=== PATIENT | female | born 1945 | race Caucasian/White ===

== ENCOUNTER → 2018-01-03 12:21 | Outpatient (CLI) | payer MEDICARE, OTHER, SELFPAY ==
--- NOTE | 2018-01-03 | DI.US.S_ITS ---
LIMITED ULTRASOUND OF RIGHT BREAST: 01/03/2018 CLINICAL: Patient returns today to evaluate a density in the right breast. Comparison is made to exams dated: 01/03/2018 mammogram - [facility], 06/30/2017 stereotactic biopsy - [facility], 06/23/2017 ultrasound, 06/23/2017 mammogram, 06/12/2017 mammogram, and 05/06/2016 mammogram - [facility]. Color flow and real-time ultrasound of the right breast 11 o'clock region were performed on the areas of interest. There is 1.2 cm x 0.6 cm x 0.7 cm irregular complicated cyst with an irregular internal wall in the right breast at 11 o'clock anterior depth. This irregular complicated cyst is hypoechoic with internal echoes and appears contiguous with the skin biopsy site. This correlates with mammography findings and the previous biopsy. Color flow imaging demonstrates that there is an adjacent vascularity. Findings likely represent a post-biopsy seroma. IMPRESSION: PROBABLY BENIGN The 1.2 cm x 0.6 cm x 0.7 cm irregular complicated cyst in the right breast is probably benign. Follow-up mammogram and ultrasound in 6 months is recommended. A follow-up mammogram and an ultrasound in 6 months is recommended to demonstrate stability.(07/05/2018) This exam was interpreted at Station ID: [id number]. Electronically Signed By: Alvarez frye/:01/03/2018 14:18:37 letter sent: Followup Recommended Ultrasound BI-RADS: 3 Probably benign
--- NOTE | 2018-01-03 | DI.MG.S_ITS ---
UNILATERAL RIGHT DIGITAL DIAGNOSTIC MAMMOGRAM 3D/2D SHORT-TERM FOLLOW-UP: 01/03/2018 CLINICAL: Patient returns for a 6 month follow up of the right breast. Post biopsy. Comparison is made to exams dated: 06/30/2017 stereotactic biopsy - [facility], 06/23/2017 ultrasound, 06/23/2017 mammogram, and 06/12/2017 mammogram - [facility]. The tissue of right breast is heterogeneously dense. This may lower the sensitivity of mammography. There is an oval equal density asymmetry with an indistinct margin in the right breast at 11 o'clock anterior depth. This correlates with the biopsy site. There is skin retraction associated with the asymmetry in the region of the biopsy scar. No other significant masses or calcifications are seen in the breast. IMPRESSION: INCOMPLETE: NEEDS ADDITIONAL IMAGING EVALUATION The oval equal density asymmetry in the right breast is indeterminate. An ultrasound is recommended. This exam was interpreted at Station ID: [id number]. NOTE: For mammograms, a report in lay terms will be sent to the patient. Approximately 15% of breast malignancies will not be visualized mammographically. In the management of a palpable breast mass, a negative mammogram must not discourage biopsy of a clinically suspicious lesion. Electronically Signed By: Alvarez Enamorado M.D. ddradha/:01/03/2018 13:28:36 letter sent: Need Ultrasound ACR BI-RADS Category 0: Incomplete 3340F
== END ==
PROVIDERS: PCP Family Medicine; Visit Provider Family Medicine
DX: R92.8 Other abnormal and inconclusive findings on diagnostic imaging of breast (principal); N60.01 Solitary cyst of right breast
CPT/HCPCS: 76642; 77065; G0279

== ENCOUNTER → 2018-06-27 14:31 | Outpatient (CLI) | payer MEDICARE, OTHER, SELFPAY ==
--- NOTE | 2018-06-27 | DI.US.S_ITS ---
LIMITED ULTRASOUND OF RIGHT BREAST: 06/27/2018 CLINICAL: Patient returns for a 6 month follow up of the right breast. Comparison is made to exams dated: 06/27/2018 mammogram, 01/03/2018 ultrasound, 01/03/2018 mammogram - [facility], 06/30/2017 stereotactic biopsy - [facility], 06/23/2017 ultrasound, and 06/23/2017 mammogram - [facility]. Ultrasound of the right breast 11 o'clock region was performed. There is a 1.3 cm x 0.5 cm x 0.8 cm irregular mass in the right breast at 11 o'clock anterior depth immediately below the skin surface. This abnormality is associated with an overlying known biopsy site and has not significantly changed. Color flow imaging demonstrates that there is no increase in vascularity. IMPRESSION: BENIGN There is no sonographic evidence of malignancy. The 1.3 cm x 0.5 cm x 0.8 cm irregular mass in the right breast is consistent with biopsy changes and is stable. Return to annual mammogram screening schedule is recommended. Findings and recommendations were conveyed to the patient. This exam was interpreted at Station ID: [id number]. Electronically Signed By: Sharda mcnamara/:06/27/2018 16:37:12 copy to: Lisandro NOVAK letter sent: Normal Exam Ultrasound BI-RADS: 2 Benign
--- NOTE | 2018-06-27 | DI.MG.S_ITS ---
BILATERAL DIGITAL DIAGNOSTIC MAMMOGRAM 3D/2D SHORT-TERM FOLLOW-UP: 06/27/2018 CLINICAL: Short term follow up of the right breast, due for bilateral imaging. Comparison is made to exams dated: 01/03/2018 mammogram, 06/23/2017 mammogram, and 06/12/2017 mammogram - [facility]. There are scattered fibroglandular elements in both breasts. There is a stable irregular mass in the right breast at 11 o'clock anterior depth. There is a post-surgical scar associated with the mass. No other significant masses, calcifications, or other findings are seen in either breast. IMPRESSION: INCOMPLETE: NEEDS ADDITIONAL IMAGING EVALUATION The irregular mass in the right breast is stable and consistent with previous biopsy changes. An ultrasound for confirmation of stability is recommended and has been performed. No mammographic evidence of malignancy in the left breast. This exam was interpreted at Station ID: [id number]. NOTE: For mammograms, a report in lay terms will be sent to the patient. Approximately 15% of breast malignancies will not be visualized mammographically. In the management of a palpable breast mass, a negative mammogram must not discourage biopsy of a clinically suspicious lesion. Electronically Signed By: Sharda mcnamara/:06/27/2018 16:31:48 copy to: Lisandro MARADIAGA BI-RADS Category 0: Incomplete 3340F
== END ==
PROVIDERS: PCP Family Medicine; Visit Provider Family Medicine
DX: R92.8 Other abnormal and inconclusive findings on diagnostic imaging of breast (principal); N63.11 Unspecified lump in the right breast, upper outer quadrant
CPT/HCPCS: 76642; 77066; G0279

== ENCOUNTER → 2019-10-02 15:17 | Outpatient (CLI) | payer MEDICARE, OTHER, SELFPAY ==
--- NOTE | 2019-10-02 15:19 | DI.MG.S_ITS ---
BILATERAL DIGITAL SCREENING MAMMOGRAM 3D/2D WITH CAD: 10/02/2019 CLINICAL: Routine screening. Family history of breast cancer. Comparison is made to exams dated: 06/27/2018 mammogram, 01/03/2018 mammogram, 06/23/2017 mammogram, and 06/12/2017 mammogram - [facility]. There are scattered fibroglandular elements in both breasts. Current study was also evaluated with a Computer Aided Detection (CAD) system. There are benign post operative findings in the right breast. No significant masses, calcifications, or other findings are seen in either breast. There has been no significant interval change. IMPRESSION: There is no mammographic evidence of malignancy. A 1 year screening mammogram is recommended. This exam was interpreted at Station ID: [id number]. NOTE: For mammograms, a report in lay terms will be sent to the patient. Approximately 15% of breast malignancies will not be visualized mammographically. In the management of a palpable breast mass, a negative mammogram must not discourage biopsy of a clinically suspicious lesion. Electronically Signed By: Tatiana palmer/rajesh:10/02/2019 15:52:51 copy to: Daisy Polo letter sent: Normal Exam ACR BI-RADS Category 2: Benign Finding(s) 3342F
== END ==
PROVIDERS: PCP Family Medicine; Referring Provider Family Medicine; Visit Provider Family Medicine
DX: Z12.31 Encounter for screening mammogram for malignant neoplasm of breast (principal); Z80.3 Family history of malignant neoplasm of breast
CPT/HCPCS: 77063; 77067

== ENCOUNTER 2019-12-13 02:52 | Emergency (ER) | payer MEDICARE, OTHER, SELFPAY ==
[2019-12-13 03:00] VITALS: BP 174/81; PULSE 95; RESP 18; TEMP 37.5; O2SAT 98
--- NOTE | 2019-12-13 03:13 | ED.GENADULT ---
HPI - General Adult General Chief complaint: Fever Stated complaint: fever/fatigue Time Seen by Provider: 12/13/19 02:57 Source: patient Mode of arrival: Ambulatory Limitations: no limitations History of Present Illness HPI narrative: Patient is an otherwise healthy 74-year-old female who went to sleep last night and her normal state health. States she woke up just prior to arrival here to the emergency department stating that she did not feel very well. She stated that it was more of just a fatigue without any specific symptoms. She woke her up. They took her temperature at home and the patient reported that it was 103. She denies chest pain or shortness of breath or sore throat or nasal congestion abdominal pain or nausea or vomiting or urinary symptoms or constipation or diarrhea. No skin rashes. She did not take anything for her symptoms prior to arrival. Related Data Home Medications Medication Instructions Recorded Confirmed EPINEPHRINE (#EPI-PEN) 1 mg MR PRN #0 10/03/11 MULTIVITAMIN (One Daily 1 tab PO QDAY #0 10/03/11 Multivitamin) [ACIDOPHILUS] QDAY #0 10/03/11 [Alleclear] QDAY #0 10/03/11 [CALCIUM] QDAY #0 10/03/11 [LUTEIN/ZEAXANTHIN] 5 - 25 mg #0 10/03/11 [VITAMIN D] #0 10/03/11 albuterol sulfate [Proventil HFA] 2 puff INH PRN #8.5 gm 10/03/11 conj estrog-medroxyprogest miguel 1 tab PO QDAY #0 10/03/11 [Prempro] escitalopram oxalate [Lexapro] 10 mg PO QDAY #0 10/03/11 estradiol [Vagifem] 10 mcg VG #0 10/03/11 levothyroxine 88 mcg PO QDAY@0600 #0 10/03/11 mometasone [Nasonex] 2 spray INTRANASAL #17 gm 10/03/11 olopatadine [Pataday] 1 drp OPHTH PRN #2.5 ml 10/03/11 Allergies Allergy/AdvReac Type Severity Reaction Status Date / Time CAT DANDER Allergy Unknown Uncoded 07/05/17 12:21 DOG DANDER Allergy Unknown Uncoded 07/05/17 12:21 From NEOSPORIN TP OIN Allergy Unknown Uncoded 07/05/17 12:21 From POLYSPORIN Allergy Unknown Uncoded 07/05/17 12:21 LATEX Allergy Unknown Uncoded 07/05/17 12:21 NUTS Allergy Unknown Uncoded 07/05/17 12:21 SHELLFISH Allergy Unknown Uncoded 07/05/17 12:21 Review of Systems Constitutional Constitutional: Reports fever(s), Denies headache(s) and Reports malaise ENT Ears, Nose, Mouth, and Throat: Denies headache(s) and Denies sore throat Cardiovascular Cardiovascular: Denies chest pain and Denies dyspnea Respiratory Respiratory: Denies cough and Denies dyspnea Gastrointestinal Gastrointestinal: Denies abdominal pain, Denies nausea and Denies vomiting Genitourinary Genitourinary: Denies dysuria Genitourinary: Denies dysuria Musculoskeletal Musculoskeletal: Denies arthralgias and Denies myalgias Integumentary/Breasts Skin/Breast: Denies rash Neurologic Neurologic: Denies behavioral changes and Denies headache(s) Psychiatric Psychiatric: Denies behavioral changes Hematologic/Lymphatic Hematologic/Lymphatic: Denies easy bleeding and Denies easy bruising Allergic/Immunologic Allergic/Immunologic: Denies urticaria Patient History Medical History (Updated 12/13/19 @ 05:34 by Marco Antonio Torrez DO) Esophageal foreign body (Inactive) Hypothyroid (Acute) Social History Smoking Status: Never smoker Smoking Status: Never smoker alcohol intake frequency: a few times a month Substance Use Type: does not use Exam Initial Vital Signs Initial Vital Signs: Vital Signs Temperature 99.5 F 12/13/19 03:00 Pulse Rate 95 H 12/13/19 03:00 Respiratory Rate 18 12/13/19 03:00 Blood Pressure 174/81 H 12/13/19 03:00 Pulse Oximetry 98 12/13/19 03:00 Const General: cooperative and comfortable Limitations: mental status not altered HENMT Head: normal to inspection and normocephalic Resp Effort & Inspection: normal respiratory effort Auscultation: clear to auscultation bilaterally Cardio Rate: regular rate Rhythm: regular rhythm GI Inspection: non-distended Palpation: soft Skin Lesions: no lesions Rashes: no rashes Neuro General: patient alert and patient awake Cognition: normal cognition Speech: speech normal Extrem General: normal to inspection and capillary refill normal Psych Appearance: grossly normal and well kempt Course Orders Ordered: ED Orders 12/13/19 03:05 COVID19 -ED/INPAT/OR/L&D Stat Vital Signs Vital signs: Vital Signs - 8 hr 12/13/19 03:00 12/13/19 03:30 Temperature 99.5 F Pulse Rate 95 H 85 Respiratory Rate 18 14 Blood Pressure 174/81 H 131/71 Pulse Oximetry 98 98 Medical Decision Making Lab Data Lab results reviewed: Yes I reviewed the patient's lab results. Labs: Lab Results 12/13/19 Range/Units 03:05 COVID-19 PCR Negative (Negative) MDM Narrative Medical decision making narrative: Patient arrived with fairly vague symptoms. Her history and physical is not consistent with pneumonia, intra-abdominal pathology, skin rashes, meningitis, urinary tract infection, her COVID-19 testing is negative. She states that she feels better upon arrival to the emergency department that she did when she initially woke up. Unsure the exact etiology of her symptoms however right now there is no indication for antibiotics. No indication for admission the hospital. I feel that radiologic studies would not change clinical course. I feel that labs other than the coronavirus test would not change clinical course as well. Patient was given return precautions and follow-up instructions. She expressed understanding and agreement. Discharge Plan Departure Patient Disposition: Home Clinical Impression: Fever Qualifiers: Fever type: unspecified Qualified Code(s): R50.9 - Fever, unspecified Discharge Date/Time: 12/13/19 03:55 Instructions: DI for Fever (Symptom) -- Adult Activity Restrictions/Additional Instructions: Continue all of your medications as directed. You can take Tylenol and/or ibuprofen for any fevers. Be sure to increase your fluid intake. Return to the emergency department for any new or worsening symptoms Prescriptions: No Action conj estrog-medroxyprogest miguel [Prempro] 0.3 MG/1.5 MG tablet 1 tab PO QDAY Qty: 0 RF: 0 estradiol [Vagifem] 10 MCG tablet 10 mcg VG Qty: 0 RF: 0 levothyroxine 88 MCG tablet 88 mcg PO QDAY@0600 Qty: 0 RF: 0 EPINEPHRINE (#EPI-PEN) 1 mg MR PRN Qty: 0 RF: 0 [Alleclear] QDAY Qty: 0 RF: 0 mometasone [Nasonex] 50 MCG/PUFF spray,non-aerosol 2 spray Intranasal Qty: 17 RF: 0 albuterol sulfate [Proventil HFA] 90 MCG/PUFF HFA aerosol inhaler 2 puff INH PRN Qty: 8.5 RF: 0 escitalopram oxalate [Lexapro] 10 MG tablet 10 mg PO QDAY Qty: 0 RF: 0 olopatadine [Pataday] 2.5 ML drops 1 drp OPHTH PRN Qty: 2.5 RF: 0 MULTIVITAMIN (One Daily Multivitamin) 1 tab PO QDAY Qty: 0 RF: 0 [CALCIUM] QDAY Qty: 0 RF: 0 [VITAMIN D] Qty: 0 RF: 0 [ACIDOPHILUS] QDAY Qty: 0 RF: 0 [LUTEIN/ZEAXANTHIN] 5 - 25 mg Qty: 0 RF: 0 celecoxib 200 MG capsule Qty: 12 RF: 0 Referrals: Lisandro Khan MD [Primary Care Provider] -
[2019-12-13 03:30] VITALS: BP 131/71; PULSE 85; RESP 14; O2SAT 98
[2019-12-13 03:33] LABS: COVID19 -Nasal RAPID Negative (Negative)
== END 2019-12-13 03:55 | disposition home or self-care (01) ==
PROVIDERS: Emergency Provider Emergency Medicine; PCP Family Medicine
DX: R50.9 Fever, unspecified (principal)
CPT/HCPCS: 87635; 99282

== ENCOUNTER → 2020-09-11 08:58 | Outpatient (CLI) | payer MEDICARE, OTHER, SELFPAY ==
--- NOTE | 2020-09-11 | DI.MRI.S_ITS ---
PROCEDURE: MR HIP LT WO CON INDICATIONS: LEFT HIP PAIN TECHNIQUE: Noncontrast coronal T1 spin echo and STIR through the bony pelvis. Coronal and axial T2 fast spin echo with fat saturation, sagittal T1 spin echo, and oblique axial T2 fast spin echo with fat saturation through the hip. COMPARISON: [facility] [place], CR, XR PELVIS WITH LATERAL HIP LEFT, 06/30/2020, 11:22. FINDINGS: Image quality: Excellent. Bones and joints: Bone marrow of the pelvic ring and proximal femurs demonstrate normal overall signal. No intraosseous mass lesions or fractures. There is bilateral osteophytosis in the hips. No avascular necrosis of the femoral heads. The visualized lower lumbar spine appears normally aligned. Tendons and ligaments: There is tendinopathy of the gluteus minimus with mild partial tearing along the mild tendinous junction. The gluteus medius also demonstrates mild partial tearing along the myotendinous junction. There is minimal partial tearing at the insertions of the gluteal tendons on the greater trochanter. There is mild fatty atrophy within the gluteus medius and minimus muscles. There is a small amount of fluid superficial to the greater trochanter suggestive of mild bursitis. The proximal iliotibial band appears intact. The iliopsoas tendon appears intact, without adjacent bursal fluid collections or evidence for impingement syndrome. There is a multi lobulated collection adjacent to its insertion along the medial aspect of the proximal femur compatible with a ganglion cyst. The origin of the hamstring tendon demonstrates mild partial tearing at its origin with mild tendinopathy. The sacrotuberous ligament appears intact. The straight and reflected heads of the rectus femoris muscle origin appear intact, as well as the conjoint tendon. The ligamentum teres appears intact where visualized. Labrum and cartilage: There is mild degenerative tearing within the anterosuperior labrum. There is moderate cartilage thinning superiorly along the femoral head. The alpha angle of the femur is within normal limits at less than 55 degrees. Soft tissues: As noted above, there is mild fatty atrophy within the gluteus medius and minimus muscles associated with the partial tearing. Remaining visualized muscles demonstrate normal bulk and internal signal. Quadratus femoris muscle demonstrates no internal edema to suggest ischiofemoral impingement. The proximal sciatic neurovascular bundle appears normal adjacent to the hamstring tendons. No free pelvic fluid. Bladder wall thickness is normal. Genitourinary structures and bowel loops appear normal where visualized. IMPRESSION: 1. Mild partial tearing along the myotendinous junctions of the gluteus medius and minimus muscles with minimal partial tearing at their insertions on the greater trochanter. There is associated fatty muscle atrophy. 2. Small amount of fluid adjacent to the greater trochanter is suggestive of mild bursitis. 3. Mild partial tearing at the origin of the hamstring tendons. 4. Multiloculated cyst adjacent to the insertion of the ileus psoas tendon likely represents a ganglion cyst. 5. Mild degenerative tearing in the anterosuperior labrum. 6. Moderate osteoarthritic changes in the left hip. Dictated by: Alvarez Enamorado M.D. on 09/11/2020 at 13:05 Approved by: Alvarez Enamorado M.D. on 09/11/2020 at 13:16
== END ==
PROVIDERS: PCP Family Medicine; Referring Provider Family Medicine; Visit Provider Family Medicine
DX: M25.552 Pain in left hip (principal); S76.012A Strain of muscle, fascia and tendon of left hip, initial encounter; M16.12 Unilateral primary osteoarthritis, left hip; S73.192A Other sprain of left hip, initial encounter; M67.854 Other specified disorders of tendon, left hip
CPT/HCPCS: 73721

== ENCOUNTER → 2020-10-14 10:31 | Outpatient (CLI) | payer MEDICARE, OTHER, SELFPAY ==
--- NOTE | 2020-10-14 | DI.MG.S_ITS ---
BILATERAL DIGITAL SCREENING MAMMOGRAM 3D/2D WITH CAD: 10/14/2020 CLINICAL: Routine screening. Family history of breast cancer. Comparison is made to exams dated: 10/02/2019 mammogram, 06/27/2018 mammogram, 01/03/2018 mammogram, 06/23/2017 mammogram, and 06/12/2017 mammogram - [facility]. There are scattered fibroglandular elements in both breasts. Current study was also evaluated with a Computer Aided Detection (CAD) system. There is an irregular equal density asymmetry with an indistinct margin and grouped fine amorphous calcifications in the right breast at 11 o'clock anterior depth. No other significant masses, calcifications, or other findings are seen in either breast. IMPRESSION: INCOMPLETE: NEEDS ADDITIONAL IMAGING EVALUATION The irregular equal density asymmetry in the right breast is indeterminate. Mediolateral, spot magnification, and spot compression views as well as additional views with possible ultrasound are recommended. This exam was interpreted at Station ID: [id number]. NOTE: For mammograms, a report in lay terms will be sent to the patient. Approximately 15% of breast malignancies will not be visualized mammographically. In the management of a palpable breast mass, a negative mammogram must not discourage biopsy of a clinically suspicious lesion. Electronically Signed By: Alvarez frye/rajesh:10/14/2020 11:13:54 letter sent: Additional Imaging Needed ACR BI-RADS Category 0: Incomplete 3340F
== END ==
PROVIDERS: PCP Family Medicine; Referring Provider Family Medicine; Visit Provider Family Medicine
DX: Z12.31 Encounter for screening mammogram for malignant neoplasm of breast (principal); N64.89 Other specified disorders of breast; Z80.3 Family history of malignant neoplasm of breast
CPT/HCPCS: 77063; 77067

== ENCOUNTER → 2020-11-06 09:19 | Outpatient (CLI) | payer MEDICARE, OTHER, SELFPAY ==
--- NOTE | 2020-11-06 | DI.US.S_ITS ---
ULTRASOUND OF RIGHT BREAST AND AXILLA: 11/06/2020 CLINICAL: Patient returns today to evaluate a focal asymmetry in the right breast. Comparison is made to exams dated: 11/06/2020 mammogram, 10/14/2020 mammogram, 10/02/2019 mammogram, 06/27/2018 ultrasound, 06/27/2018 mammogram, and 01/03/2018 [facility]. Color flow and real-time ultrasound of the right breast axilla were performed. Lemus scale images of the real-time examination were reviewed. There is a 0.8 cm x 0.6 cm x 0.7 cm irregular mass with indistinct margins in the right breast at 10 o'clock anterior depth 4 cm from the nipple. This irregular mass is hypoechoic with posterior acoustic shadowing. This correlates with mammography findings. Color flow imaging demonstrates that there is vascularity present. No significant abnormalities were seen sonographically in the right axilla. IMPRESSION: SUSPICIOUS OF MALIGNANCY The 0.8 cm x 0.6 cm x 0.7 cm irregular mass in the right breast is suspicious of malignancy. An ultrasound guided biopsy is recommended. Findings and recommendations were discussed with the patient by Dr. Hopper during today's examination. This exam was interpreted at Station ID: [id number]. Electronically Signed By: Devonte Aguilera M.D. aty/:11/06/2020 10:25:14 letter sent: Biopsy Required Ultrasound BI-RADS: 4 Suspicious for malignancy
--- NOTE | 2020-11-06 | DI.MG.S_ITS ---
UNILATERAL RIGHT DIGITAL DIAGNOSTIC MAMMOGRAM 3D/2D WITH ADDITIONAL VIEWS: 11/06/2020 CLINICAL: Additional evaluation requested from prior study. Comparison is made to exams dated: 10/14/2020 mammogram, 10/02/2019 mammogram, and 06/27/2018 mammogram - [facility]. There are scattered fibroglandular elements in right breast. There is an irregular equal density focal asymmetry with an indistinct margin and grouped heterogeneous calcifications in the right breast at 11 o'clock anterior-middle depth. This is seen in additional views. No other significant masses or calcifications are seen in the breast. IMPRESSION: INCOMPLETE: NEEDS ADDITIONAL IMAGING EVALUATION The irregular equal density focal asymmetry in the right breast resembles fibroglandular tissue with possible associated microcalcifications and is indeterminate. An ultrasound is recommended for further evaluation and is scheduled to immediately follow this examination. This exam was interpreted at Station ID: [id number]. NOTE: For mammograms, a report in lay terms will be sent to the patient. Approximately 15% of breast malignancies will not be visualized mammographically. In the management of a palpable breast mass, a negative mammogram must not discourage biopsy of a clinically suspicious lesion. Electronically Signed By: Devonte Aguilera M.D. aty/:11/06/2020 09:53:03 ACR BI-RADS Category 0: Incomplete 3340F
== END ==
PROVIDERS: PCP Family Medicine; Referring Provider Family Medicine; Visit Provider Family Medicine
DX: R92.8 Other abnormal and inconclusive findings on diagnostic imaging of breast (principal); N63.11 Unspecified lump in the right breast, upper outer quadrant
CPT/HCPCS: 76642; 77065; G0279

== ENCOUNTER → 2020-11-27 12:25 | Outpatient (CLI) | payer MEDICARE, OTHER, SELFPAY ==
--- NOTE | 2020-11-27 | DI.US.S_ITS ---
ULTRASOUND GUIDED BIOPSY RIGHT BREAST USING VACUUM DEVICE WITH MARKING DEVICE INSERTED: 11/27/2020 CLINICAL: Patient returns today to evaluate an asymmetry in the right breast. PATIENT CONSENT: Risks (minor bleeding, infection, vasovagal reaction and repeat procedure), benefits and alternatives were explained to the patient and written informed consent was obtained. Correlation is made to exams dated: 11/27/2020 mammogram, 11/06/2020 ultrasound, 11/06/2020 mammogram, 10/14/2020 mammogram, 10/02/2019 mammogram, and 06/27/2018 [facility]. An ultrasound guided biopsy using real-time ultrasound was performed for the irregular shaped mass located in the right breast at 10 o'clock anterior depth. The skin was prepped in the usual manner. Local anesthetic was administered to the access site. A small incision was made in the breast. The abnormality was approached from the lateral aspect. A biopsy needle was placed adjacent to the abnormality under ultrasound guidance. Once the needle was documented to be in the correct location, a specimen was obtained using the Mammotome biopsy system. The patient received additional local anesthetic during the procedure. A clip was inserted into the biopsy cavity. The specimen was sent to the laboratory for pathological analysis. IMPRESSION: ULTRASOUND GUIDED BIOPSY BENIGN Ultrasound guided biopsy of the mass in the right breast at 10 o'clock anterior depth was successful. Pathology results indicates benign fibroadipose and fibroconnective tissue with hemosiderin-laden macrophages, patchy changes of foreign body giant cell reaction, and calcifications, suggestive of possible previous instrumentation or hematoma. Pathology results are concordant with imaging findings. However, recommend follow up right breast mammogram and right breast ultrasound to document stability. This exam was interpreted at Station ID: [id number]. Dino loomis,aty/:12/02/2020 10:08:24
--- NOTE | 2020-11-27 | DI.MG.S_ITS ---
UNILATERAL RIGHT DIGITAL DIAGNOSTIC MAMMOGRAM 3D/2D POST-PROCEDURE IMAGING FOR MARKER PLACEMENT: 11/27/2020 CLINICAL: Right post clip. Comparison is made to exams dated: 11/06/2020 ultrasound, 11/06/2020 mammogram, and 10/14/2020 mammogram - [facility]. There are scattered fibroglandular elements in right breast. There is a marker clip in the appropriate position in the right breast at 10 o'clock anterior depth. This marker clip placement is at the biopsy site. IMPRESSION: POST PROCEDURE MAMMOGRAM FOR MARKER PLACEMENT There was a successful marker clip placement in the right breast anterior depth. This exam was interpreted at Station ID: [id number]. NOTE: For mammograms, a report in lay terms will be sent to the patient. Approximately 15% of breast malignancies will not be visualized mammographically. In the management of a palpable breast mass, a negative mammogram must not discourage biopsy of a clinically suspicious lesion. Electronically Signed By: Dino loomis/:11/27/2020 15:23:58 ACR BI-RADS Category Post-procedure mammogram for marker placement
--- NOTE | 2020-11-27 | PATH_ITS ---
[facility] Accession Number: [id number] . 01 Material submitted: . breast - RIGHT BREAST MASS 10:00 4CMFN . 02 Diagnosis: Right Breast Mass at 10 o'clock, 4 cm from Nipple, Needle Core Biopsies: Fibroadipose and fibroconnective tissue with hemosiderin-laden macrophages, patchy changes of foreign body giant cell reaction, and calcifications, suggestive of possible previous instrumentation or hematoma. Negative for atypia or malignancy. . MRV 12/01/2020 1533 Local . 02 Comment: As part of routine lead quality technician, this case was also reviewed by Dr. Isaac, who agrees with the interpretation. . 02 Electronically signed: . Ana Boothe MD, Pathologist NPI- [id number] . 01 Gross description: . Received in formalin, labeled with the patient's name and RT breast 10:00 are four pieces of wilson adipose tissue and aggregate amounts of hemorrhagic material. The four pieces of adipose tissue measure 0.8 x 0.4 x 0.3 cm to 0.5 x 0.5 x 0.3 cm. The aggregate hemorrhagic material measures 1.0 x 0.5 x 0.2 cm. All five pieces and the aggregate material are entirely submitted in cassette A1. Collection date and time are listed as 11/27/20 at 14:18 p.m. for a total fixation time of approximately 70 hours. Note: This is due to the holiday. ([id number]) /FRR 11/28/2020 1442 Local . 02 Pathologist provided ICD-10: N64.9 . 02 CPT . 928195 Performed at: 01 [facility] [address] [place] [address] [id number] MD Alvarez Alexander MD Phone: [phone] Performed at: 02 [facility] [id number] [place] [address] [id number] MD Kiya Urena MD Phone: [phone]
== END ==
PROVIDERS: PCP Family Medicine; Referring Provider Family Medicine; Visit Provider Family Medicine
DX: N63.11 Unspecified lump in the right breast, upper outer quadrant (principal)
CPT/HCPCS: 19083; 77065